=== PATIENT | female | born 1995 ===

== ENCOUNTER 2019-02-02 07:30 | Emergency (ER) | payer OTHER ==
[2019-02-02 07:56] VITALS: BP 103/64
--- NOTE | 2019-02-02 08:21 | UC ---
Skin Complaint HPI - HPI Summary HPI Summary: 23-year-old woman comes in with a chief complaint of a generalized rash. Started yesterday and been spreading. Patient does feel cold but she says she always feels cold. Today she does have a sore throat and the pains worse with swallowing. No complaint of any shortness of breath. Overnight the rash has become generalized. - History of Current Complaint Chief Complaint: UCGeneralIllness Time Seen by Provider: 02/02/19 08:00 Stated Complaint: RASH Hx Last Menstrual Period: 01/21/19 Pain Intensity: 0 - Allergy/Home Medications Allergies/Adverse Reactions: Allergies Allergy/AdvReac Type Severity Reaction Status Date / Time No Known Allergies Allergy Verified 02/02/19 07:45 Home Medications: Home Medications diPHENhydraMINE PO* [Benadryl PO 25 MG TAB*] 1 tab PO ONCE 02/02/19 [History Confirmed 02/02/19] PMH/Surg Hx/FS Hx/Imm Hx Previously Healthy: Yes - Surgical History Surgical History: None - Family History Known Family History: Positive: Non-Contributory - Social History Alcohol Use: Rare Substance Use Type: None Smoking Status (MU): Never Smoked Tobacco Review of Systems All Other Systems Reviewed And Are Negative: Yes Constitutional: Positive: Other - see hpi Skin: Positive: Other - see hpi Eyes: Positive: Negative ENT: Positive: Sore Throat Respiratory: Positive: Negative Cardiovascular: Positive: Negative Gastrointestinal: Positive: Negative Motor: Positive: Negative Neurovascular: Positive: Negative Musculoskeletal: Positive: Negative Neurological: Positive: Negative Psychological: Positive: Negative Is Patient Immunocompromised?: No Physical Exam Triage Information Reviewed: Yes Appearance: Well-Appearing, No Pain Distress, Well-Nourished Vital Signs: Initial Vital Signs Temp 98.7 F 02/02/19 07:48 Pulse 85 02/02/19 07:48 Resp 18 02/02/19 07:48 BP 103/64 02/02/19 07:48 Pulse Ox 100 02/02/19 07:48 Vital Signs Reviewed: Yes Eye Exam: Normal Eyes: Positive: Conjunctiva Clear ENT: Positive: Pharyngeal erythema, Tonsillar swelling - 1+ b/l, oral pharynx is open voice is normal., Uvula midline. Negative: Muffled voice, Hoarse voice Neck: Positive: Supple Respiratory: Positive: Lungs clear, Normal breath sounds, No respiratory distress Cardiovascular: Positive: RRR Musculoskeletal: Positive: Strength Intact, ROM Intact Neurological: Positive: Alert, Muscle Tone Normal Psychological: Positive: Age Appropriate Behavior Skin: Positive: Other - Patient has a diffuse fine blanching erythematous rash setting includes arms and trunk and legs and face. Patient reports her face is swollen. Is symmetric. Course/Dx - Course Course Of Treatment: Strep was negative in clinic. Patient does not have a fever. Patient has diffuse swelling and rash most consistent with allergic reaction. Therefore in clinic patient given prednisone 60 mg by mouth and Pepcid 40 mg by mouth. Patient had no difficulty with breathing in clinic. She has no prior history of allergic reactions. Plan is to continue using Benadryl Pepcid and prednisone as needed. Also discussed with the patient that she started developing a fever signs of infection she stopped the prednisone and get reevaluated by medical provider. Also let her know if she had more difficulty with swallowing or breathing and she should get evaluated and treated in the emergency department. - Diagnoses Provider Diagnosis: Rash, Allergic reaction Discharge ED - Sign-Out/Discharge Documenting (check all that apply): Patient Departure All imaging exams completed and their final reports reviewed: No Studies - Discharge Plan Condition: Stable Disposition: HOME Prescriptions: Famotidine TAB* [Pepcid 20 MG TAB*] 20 mg PO BID PRN #8 tab PRN Reason: Allergy Symptoms predniSONE TAB* [Deltasone 20 MG TAB*] 40 mg PO DAILY PRN #8 tab PRN Reason: Allergy Symptoms Patient Education Materials: General Allergic Reaction (ED) Referrals: [facility] [Provider Group] Additional Instructions: FOLLOW UP WITH [facility] OR ANOTHER MEDICAL PROVIDER IF NOT COMPLETELY IMPROVED OR YOU DEVELOP A FEVER OR FEEL ILL. GO TO THE EMERGENCY DEPARTMENT IF YOUR CONDITION WORSENS; DIFFICULTY SWALLOWING OR BREATHING OR ANY QUESTIONS OR CONCERNS. TAKE BENADRYL 50MG EVERY 6 HOURS NEEDED. TAKE PEPCID 20MG TWICE A DAY NEEDED. TAKE THE PREDNISONE DIRECTED NEEDED. - Billing Disposition and Condition Condition: STABLE Disposition: Home
[2019-02-02] MEDS ORDERED: Famotidine TAB* 20 MG PO ONE (08:33)
[2019-02-02] MEDS ORDERED: predniSONE TAB* 20 MG PO ONE (08:33)
== END 2019-02-02 08:48 | disposition home or self-care (01) ==
LOC: UCEAST 07:30
DX: T78.40XA Allergy, unspecified, initial encounter (principal); R21 Rash and other nonspecific skin eruption; J35.8 Other chronic diseases of tonsils and adenoids; X58.XXXA Exposure to other specified factors, initial encounter; Y92.9 Unspecified place or not applicable
CPT/HCPCS: 87651; 99202; A9270-GY; G0463; J7512

== ENCOUNTER 2019-02-02 14:50 | Emergency (ER) | payer SELFPAY ==
[2019-02-02 14:59] VITALS: BP 113/70
== END 2019-02-02 15:04 | disposition left against medical advice (07) ==
LOC: ED 14:50
DX: R21 Rash and other nonspecific skin eruption (principal); Z53.21 Procedure and treatment not carried out due to patient leaving prior to being seen by health care provider

== ENCOUNTER 2019-07-02 13:39 | Emergency (ER) | payer OTHER ==
[2019-07-02 13:50] VITALS: BP 99/63
--- NOTE | 2019-07-02 13:54 | UC ---
Skin Complaint HPI - HPI Summary HPI Summary: 23 year old female with no PMH, presented several months ago with LE rash, dx'd with allergic reaction, started on steroids with good resolution. patient states this morning woke with itching on right wrist, b/l forearms, right knee, as well as ithing around eyes. no difficulty breathing or swallowing. Denies new medications, no new soaps/ detergents. Increased stress at this visit as well as last with testings/ midterm exams. - History of Current Complaint Chief Complaint: UCRash Time Seen by Provider: 07/02/19 13:52 Stated Complaint: ALLERGIC REACTION Hx Obtained From: Patient Hx Last Menstrual Period: 3 weeks ago ?: No Onset/Duration: Sudden Onset, Lasting Hours Skin Exposure Onset/Duration: Hours Ago Timing: Constant Current Severity: None Pain Intensity: 0 Pain Scale Used: 0-10 Numeric Location: Discrete Character: Swelling, Pruritus, Redness Aggravating Factor(s): Nothing - Allergy/Home Medications Allergies/Adverse Reactions: Allergies Allergy/AdvReac Type Severity Reaction Status Date / Time No Known Allergies Allergy Verified 07/02/19 13:50 Home Medications: Home Medications Famotidine TAB* [Pepcid 20 MG TAB*] 20 mg PO DAILY #1 tab 07/02/19 [Rx] Famotidine TAB* [Pepcid 20 MG TAB*] 20 mg PO DAILY #14 tab 07/02/19 [Rx] Famotidine TAB* [Pepcid 20 MG TAB*] 20 mg PO DAILY #14 tab 07/02/19 [Rx] methylPREDNISolone [Medrol Dosepak 4 MG*] 1 mg PO .SEE [employer] #1 packet 07/02/19 [Rx] methylPREDNISolone [Medrol Dosepak 4 MG*] 1 mg PO .SEE [employer] #1 packet 07/02/19 [Rx] methylPREDNISolone [Medrol Dosepak 4 MG*] 1 mg PO .SEE [employer] #1 packet 07/02/19 [Rx] PMH/Surg Hx/FS Hx/Imm Hx Previously Healthy: Yes - Surgical History Surgical History: None - Family History Known Family History: Positive: Non-Contributory - Social History Occupation: [employer] Alcohol Use: Rare Substance Use Type: None Smoking Status (MU): Never Smoked Tobacco Review of Systems All Other Systems Reviewed And Are Negative: Yes Constitutional: Positive: Negative. Negative: Fever, Chills, Fatigue Skin: Positive: Rash Eyes: Negative: Negative ENT: Negative: Sore Throat, Sinus Congestion, Sinus Pain/Tenderness Respiratory: Negative: Shortness Of Breath, Cough Motor: Positive: Negative Psychological: Positive: Negative Is Patient Immunocompromised?: No Physical Exam Triage Information Reviewed: Yes Appearance: Well-Appearing, No Pain Distress, Well-Nourished Vital Signs: Initial Vital Signs Temp 98.4 F 07/02/19 13:46 Pulse 80 07/02/19 13:46 Resp 18 07/02/19 13:46 BP 99/63 07/02/19 13:46 Pulse Ox 100 07/02/19 13:46 Vital Signs Reviewed: Yes Eyes: Positive: Conjunctiva Clear ENT: Positive: Hearing grossly normal, Pharynx normal, Uvula midline. Negative : Pharyngeal erythema, Tonsillar swelling, Tonsillar exudate Neck: Positive: Supple, Nontender, No Lymphadenopathy. Negative: Nuchal Rigidity, Enlarged Nodes @ Respiratory: Positive: Chest non-tender, Lungs clear, Normal breath sounds, No respiratory distress, No accessory muscle use. Negative: Respiratory distress, Crackles, Rhonchi, Stridor, Wheezing Cardiovascular: Positive: RRR Neurological Exam: Normal Neurological: Positive: Alert Psychological Exam: Normal Psychological: Positive: Normal Response To Family Skin: Positive: Other - L/R forearm with raised urticarial lesions, discrete, over R wrist fold, and overtop of R knee. + excoriations. no drainage, vesicles. Course/Dx - Course Course Of Treatment: - GO to ER or call ambulance with difficulty swallowing, shortness of breath - Steroids to help decrease body's reaction, rash - Benadryl at night to help with itching, sleep - Claritin during the day to help with symptoms of itch, rash - Pepcid to help decrease inflammation response - [place] as this has happened twice without known cause - Differential Diagnoses - Skin Complaint Differential Diagnoses: Angioedema - Diagnoses Provider Diagnosis: Urticarial dermatitis Discharge ED - Sign-Out/Discharge Documenting (check all that apply): Patient Departure All imaging exams completed and their final reports reviewed: No Studies - Discharge Plan Condition: Good Disposition: HOME Prescriptions: Famotidine TAB* [Pepcid 20 MG TAB*] 20 mg PO DAILY #14 tab Famotidine TAB* [Pepcid 20 MG TAB*] 20 mg PO DAILY #1 tab Famotidine TAB* [Pepcid 20 MG TAB*] 20 mg PO DAILY #14 tab methylPREDNISolone [Medrol Dosepak 4 MG*] 1 mg PO .SEE [employer] #1 packet methylPREDNISolone [Medrol Dosepak 4 MG*] 1 mg PO .SEE [employer] #1 packet methylPREDNISolone [Medrol Dosepak 4 MG*] 1 mg PO .SEE [employer] #1 packet Patient Education Materials: Urticaria (ED) Referrals: [facility] [Provider Group] No Primary Care Phys,[facility] [Primary Care Provider] - Additional Instructions: - GO to ER or call ambulance with difficulty swallowing, shortness of breath - Steroids to help decrease body's reaction, rash - Benadryl at night to help with itching, sleep - Claritin during the day to help with symptoms of itch, rash - Pepcid to help decrease inflammation response - [place] as this has happened twice without known cause - Billing Disposition and Condition Condition: GOOD Disposition: Home - Attestation Statements Provider Attestation: I was available for consult. This patient was seen by the LARON. The patient was not presented to , seen by or examined by me -Leif Jeff MD
== END 2019-07-02 14:34 | disposition home or self-care (01) ==
LOC: UCEAST 13:39
DX: L30.8 Other specified dermatitis (principal); J02.9 Acute pharyngitis, unspecified; R09.81 Nasal congestion
CPT/HCPCS: 99212; G0463